=== PATIENT | male | born 1990 | race Caucasian/White ===

== ENCOUNTER 2019-07-02 15:53 | Emergency (ER) | payer SELFPAY ==
[~2019-07-02] VITALS: Ht 177.8 cm; Wt 83.5 kg
[2019-07-02 15:57] VITALS: Ht 177.8 cm; Wt 83.5 kg
[2019-07-02 17:33] LABS: CALCIUM 8.7 mg/dL (8.5-10.1); CARBON DIOXIDE 29.3 mmol/L (21-32); CREATININE SERUM 1.5 mg/dL (0.7-1.3); POTASSIUM SERUM 4.4 mmol/L (3.5-5.1)
[2019-07-02 19:25] VITALS: BP 134/85
== END 2019-07-02 19:25 | disposition home or self-care (01) ==
LOC: ED 15:53
PROVIDERS: Emergency Medicine
DX: N23 Unspecified renal colic (principal)
CPT/HCPCS: J1885; J7030